=== PATIENT | female | born 1980 | race Caucasian/White ===

== ENCOUNTER 2018-07-25 11:19 | Emergency (ER) | payer SELFPAY ==
[~2018-07-25] VITALS: Ht 162.6 cm; Wt 75.7 kg
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
--- NOTE | 2018-07-25 11:41 | NUR ---
ESTHER HUDSON AT BEDSIDE FOR EVAL.
--- NOTE | 2018-07-25 12:47 | NUR ---
Patient discharged to home in stable condition. Written and verbal after care instructions given. Patient verbalizes understanding of instruction.
[2018-07-25 12:48] VITALS: BP 128/70
== END 2018-07-25 12:48 | disposition home or self-care (01) ==
LOC: ER 11:20
DX: S20.212A Contusion of left front wall of thorax, initial encounter (principal); S20.211A Contusion of right front wall of thorax, initial encounter; V43.52XA Car driver injured in collision with other type car in traffic accident, initial encounter; Y93.89 Activity, other specified; Y92.413 State road as the place of occurrence of the external cause; Y99.8 Other external cause status
CPT/HCPCS: 71045; 93005; 99284; A4606; Z7610